=== PATIENT | female | born 1960 | race Caucasian/White ===

== ENCOUNTER 2018-01-24 06:29 | Observation (INO) | payer OTHER ==
[~2018-01-24] VITALS: Ht 172.7 cm; Wt 106.1 kg
--- NOTE | ~2018-01-24 | CON ---
[address] [address] CONSULTATION Name: MARIEL TIDWELL Room: [address] Roldan Bullard#: [id number] Admission: 01/24/18 Attend Phys: Abhijit Martins MD Discharge: Date of : 58 Report #: [id number] THIS REPORT FOR: //name// CC: Abhijit Martins [facility] physician/PCP DATE OF SERVICE: 01/24/2018 HISTORY OF PRESENT ILLNESS: This is a 57-year-old female patient who was evaluated by me for the right leg weakness. She indicated that symptoms started last night. She noticed the symptoms around 11:00 p.m. last night when she woke up. She did not seek any medical attention and then went back to sleep, hoping the symptoms would be better in the morning. When the patient was not any better, then she came to Emergency Room. She had some weakness of the right upper extremity also, but that is better. Right leg is not better. Review of system indicate she does have some back problem. She mostly goes to a chiropractor for that. She does have a history of hypertension. She needs to monitor it, not take the medication. She used to take medication, but about 2 years ago, she stopped taking the medication. Blood pressure on admission was 194/92. Record indicate that she also has severe hyperlipidemia. Her LDL was 143, how long it is going on is not clear. She indicates otherwise she is healthy and works. PAST MEDICAL HISTORY: Negative for any stroke. FAMILY HISTORY: Negative for any early age stroke. REVIEW OF SYSTEMS: Rest of the 14-point review of system was noncontributory. SOCIAL HISTORY: She indicates she does not smoke and drink alcohol rarely. PHYSICAL EXAMINATION: Indicate she is alert, responsive, able to follow simple commands. Her speech, concentration, fund of knowledge and memory is at her baseline. Cranial nerve examination 2-12 looks unremarkable. Strength in the right upper extremity does not look too bad, but in the right lower extremity, she is pretty significantly weak, position sense is intact there. There is no cerebellar sign. I could not look at the patient's fundus. She is moderately built individual. She does not have any dysmorphic features of eyes, ears and face. Cardiac examination is unremarkable. No respiratory difficulty was noted. Pulses are difficult to feel. She did have a CT scan of the head, which did not show any acute abnormality. MRI is pending. IMPRESSION: The first diagnosis we need to consider in this patient is infarct in the left anterior cerebral artery distribution. If that [place], [place] [address] CONSULTATION Name: MARIEL TIDWELL JUNE Room: [address] M.R.#: [id number] Admission: 01/24/18 Attend Phys: Abhijit Martins MD Discharge: Date of : 58 Report #: [id number] we will start the secondary prophylaxis. If we cannot document that, then we need to workup the spine and look for other causes. RECOMMENDATIONS: I discussed all of it with the patient. I discussed with her our plan. She is going to need high dose statin. We will follow this patient with you. The patient was discussed with Dr. Martins who is admitting physician as well as Dr. Arriaga, who is an Emergency Room physician. More than 50 minutes of time was spent taking care of this patient and majority of that time was spent counseling the patient, coordinating her care by talking to other health direct care counselor and reviewing the patient's data. By: [id number] [id number] Ewing MD /nt
[~2018-01-24 06:29] MED LIST: DARVOCET-N 1001 EAC1 PO
[2018-01-24 06:33] VITALS: BP 194/92
[2018-01-24 06:55] LABS: ABSOLUTE EOSINOPHILS 0.1 thou/uL (0.0-0.7); ABSOLUTE LYMPHOCYTES 1.5 thou/uL (0.8-5.3); ABSOLUTE MONOCYTES 0.6 thou/uL (0.0-1.2); ABSOLUTE NEUTROPHILS 4.3 thou/uL (1.6-8.1); BASOPHILS 0.4 %; EOSINOPHILS 1.6 %; HEMATOCRIT 43.6 % (37.0-47.0); HEMOGLOBIN 14.9 gm/dL (12.0-15.0); LYMPHOCYTES 23.4 %; MCH 29.5 pg (26.0-34.0); MCHC 34.3 g/dL (28.0-37.0); MCV 86.1 fL (80.0-100.0); MONOCYTES 9.2 %; MPV 7.8 fl. (7.2-11.1); NUCLEATED RBCS 0 /100WBC; PLATELET COUNT* 225 thou/uL (150-400); POLYS 65.4 %; RBC 5.07 mil/uL (4.20-5.00); RDW-CV 12.5 % (10.5-14.5); WBC 6.6 thou/uL (4.0-11.0)
[2018-01-24 07:05] LABS: APTT 27.5 Seconds (25.0-31.3); PROTIME 10.1 Seconds (9.20-11.50)
[2018-01-24 08:23] LABS: URINE BILIRUBIN NEGATIVE (Negative); URINE BLOOD NEGATIVE (Negative); URINE CLARITY CLEAR; URINE COLOR YELLOW; URINE GLUCOSE-RANDOM NEGATIVE (Negative); URINE KETONES NEGATIVE (Negative); URINE LEUKOCYTES-REFLEX NEGATIVE (Negative); URINE NITRITE-REFLEX NEGATIVE (Negative); URINE PROTEIN NEGATIVE (Negative); URINE SPECIFIC GRAVITY >= 1.030 (1.005-1.030); URINE UROBILINOGEN 0.2 E.U./dl (0.2-1.0)
[2018-01-24 09:56] LABS: CHOLESTEROL 230 mg/dL (<200); HDL CHOLESTEROL 47 mg/dL (>40); LDL CHOLESTEROL 143 mg/dL (<100); TC:HDL 4.9 Ratio (Not establshd); TRIGLYCERIDE 204 mg/dL (<150); VLDL 41 mg/dL (<40)
[2018-01-24 09:57] LABS: SERUM ASSESSMENT Clear
[2018-01-24 10:20] VITALS: BP 180/99
[2018-01-24 10:45] VITALS: BP 180/88
[2018-01-24 11:06] LABS: ALBUMIN 3.6 g/dL (3.4-5.0); CALCIUM 9.2 mg/dL (8.5-10.1); CREATININE 0.7 mg/dL (0.6-1.3); POTASSIUM 3.9 mmol/L (3.5-5.1); TOTAL BILIRUBIN 1.2 mg/dL (<0.1-1.0); TOTAL PROTEIN 6.8 g/dL (6.4-8.2)
--- NOTE | 2018-01-24 15:27 | 2DMMODE ---
[place] [address] 2 D/M-MODE ECHOCARDIOGRAM Name: MARIEL TIDWELL Room: [address] Roldan Bullard#: [id number] Admission: 01/24/18 Attend Phys: Abhijit Martins, Discharge: Date of : 58 Date of Service: 01/24/18 1526 Report #: [id number] THIS REPORT FOR: //name// APPROVED REPORT Study performed: 01/24/2018 14:22:51 EXAM: Comprehensive 2D, Doppler, and color-flow Echocardiogram Patient Location: In-Patient Room #: [facility] Status: routine BSA: 2.28 HR: 67 bpm BP: 180/99 mmHg Rhythm: NSR Other Information Study Quality: Good Indications CVA/TIA Echo Enhancing Agent Indication: Rule out Shunt Agent(s) / Amount(s) Used: Agitated Saline 10 cc 2D Dimensions IVSd: 11.37 (7-11mm) LVOT Diam: 20.64 (18-24mm) LVDd: 54.57 mm PWd: 10.98 (7-11mm) Ascending Ao: 32.74 (22-36mm) LVDs: 32.11 (25-40mm) Aortic Root: 31.16 mm Volumes Left Atrial Volume (Systole) LA ESV Index: 26.70 mL/m2 Aortic Valve AoV Peak Vishnu.: 1.49 m/s AO Peak Gr.: 8.89 mmHg LVOT Max P.78 mmHg AO Mean Gr.: 4.56 mmHg LVOT Mean P.97 mmHg LVOT Max V: 1.09 m/s AO V2 VTI: 30.97 cm LVOT Mean V: 0.63 m/s BRAD (VTI): 2.36 cm2 LVOT V1 VTI: 21.88 [place] [address] 2 D/M-MODE ECHOCARDIOGRAM Name: TIDWELLMARIEL Room: [address] M.R.#: [id number] Admission: 01/24/18 Attend Phys: Abhijit Martins, Discharge: Date of : 58 Date of Service: 01/24/18 1526 Report #: [id number] Mitral Valve E/A Ratio: 1.28 MV Decel. Time: 269.35 ms MV E Max Vishnu.: 0.70 m/s MV PHT: 78.11 ms MVA (PHT): 2.82 cm2 TDI E/Lateral E': 5.83 E/Medial E': 5.83 Medial E' Vishnu.: 0.12 m/s Lateral E' Vishnu.: 0.12 m/s Pulmonary Valve PV Peak Vishnu.: 1.00 m/s PV Peak Gr.: 3.99 mmHg Left Ventricle The left ventricle is normal size. There is normal LV segmental wall motion. There is normal left ventricular wall thickness. Left ventricular systolic function is normal. The left ventricular ejection fraction is within the normal range. LVEF is 55-60%. The left ventricular diastolic function is normal. Right Ventricle The right ventricle is normal size. The right ventricular systolic function is normal. Atria The left atrium size is normal. Interatrial septum is intact without evidence of ASD or PFO. The right atrium size is normal. Aortic Valve The aortic valve is normal in structure. No aortic regurgitation is present. There is no aortic valvular stenosis. Mitral Valve The mitral valve is normal in structure. Trace mitral regurgitation. No evidence of mitral valve stenosis. Tricuspid Valve The tricuspid valve is normal in structure. There is no tricuspid valve regurgitation noted. Pulmonic Valve The pulmonary valve is normal in structure. [place] [address] 2 D/M-MODE ECHOCARDIOGRAM Name: MARIEL TIDWELL JUNE Room: [address] Roldan MAuraRAura#: [id number] Admission: 01/24/18 Attend Phys: Abhijit Mratins, Discharge: Date of : 58 Date of Service: 01/24/18 1526 Report #: [id number] Great Vessels The aortic root is normal in size. IVC is normal in size and collapses >50% with inspiration. Pericardium There is no pericardial effusion. <Conclusion> The left ventricle is normal size. There is normal left ventricular wall thickness. Left ventricular systolic function is normal. The left ventricular ejection fraction is within the normal range. LVEF is 55-60%. The left ventricular diastolic function is normal. The right ventricle is normal size. The left atrium size is normal. The aortic valve is normal in structure. The mitral valve is normal in structure. The tricuspid valve is normal in structure. IVC is normal in size and collapses >50% with inspiration. There is no pericardial effusion. There is normal LV segmental wall motion. <ELECTRONICALLY SIGNED> By: Markos Bryan MD, FACC 01/24/18 1526 1526 1526 Markos Bryan MD, FACC /INF
[2018-01-24 16:11] VITALS: BP 190/88
--- NOTE | 2018-01-24 16:19 | EKG ---
[place] [address] ELECTROCARDIOGRAM REPORT Name: MARIEL TIDWELL Room: [address] M.R.#: [id number] Admission: 01/24/18 Attend Phys: Abhijit Martins MD Discharge: Date of : 58 Report #: [id number] THIS REPORT FOR: //name// [facility] ED Test Date: 2018-01-24 Test Time: 06:35:42 Pat Name: MARIEL TIDWELL Department: Room: [facility] Gender: F Chiropractic Doctor: DANIELLA : 1960 Requested By: Mookie Jara Order Number: [id number] MD: Markos Bryan Measurements Intervals [place] Rate: 66 P: 25 MA: 137 QRS: -19 QRSD: 101 T: 21 QT: 429 QTc: 450 Interpretive Statements Sinus rhythm Borderline left axis deviation Borderline T abnormalities, inferior leads No previous ECG available for comparison Electronically Signed On 01-24-2018 16:19:25 [facility] by Markos Bryan [email or web address] <ELECTRONICALLY SIGNED> By: Markos Bryan MD, [facility] 01/24/18 1619 Markos Bryan MD, FAC /EPI
[2018-01-24 19:15] VITALS: BP 153/66
[2018-01-24 21:06] LABS: GLYCOHEMOGLOBIN (HGB A1C) 5.6 % (4.8-5.6)
[2018-01-25] VITALS: BP 155/57
[2018-01-25 04:00] VITALS: BP 159/73
[2018-01-25 07:25] LABS: ANION GAP 10 mmol/L (7-16); BUN 20 mg/dL (7-18); CALCIUM 8.2 mg/dL (8.5-10.1); CHLORIDE 106 mmol/L (98-107); CO2 25 mmol/L (21-32); CREATININE 0.6 mg/dL (0.6-1.3); GLUCOSE 113 mg/dL (70-99); SODIUM 141 mmol/L (136-145)
[2018-01-25 07:29] LABS: ALKALINE PHOSPHATASE 79 U/L (46-116); CHOLESTEROL 170 mg/dL (<200); HDL CHOLESTEROL 36 mg/dL (>40); LDL CHOLESTEROL 99 mg/dL (<100); SERUM ASSESSMENT Clear; SGOT 18 U/L (15-37); SGPT 33 U/L (30-65); TC:HDL 4.7 Ratio (Not establshd); TOTAL PROTEIN 5.9 g/dL (6.4-8.2); TRIGLYCERIDE 177 mg/dL (<150); VLDL 35 mg/dL (<40)
[2018-01-25 07:30] VITALS: BP 154/93
[2018-01-25] MEDS ORDERED: ASPIR 8181 M1 PO (10:10)
[2018-01-25] MEDS ORDERED: ATORVASTATIN CA40 MG PO (10:11)
[2018-01-25] MEDS ORDERED: NORVASC10 MG PO (10:12)
[2018-01-25 10:15] VITALS: BP 154/93
[2018-01-25 19:08] LABS: GLYCOHEMOGLOBIN (HGB A1C) 5.6 % (4.8-5.6)
== END 2018-01-25 17:31 | disposition home or self-care (01) ==
LOC: M.ERS 06:29 → M.TBA-ER 09:10 → M.2W 09:10
PROVIDERS: Emergency Medicine; Personal Emergency Response Attendant; ADMIT Internal Medicine
DX: I63.522 Cerebral infarction due to unspecified occlusion or stenosis of left anterior cerebral artery (principal); I10 Essential (primary) hypertension; E78.5 Hyperlipidemia, unspecified; R42 Dizziness and giddiness; G43.919 Migraine, unspecified, intractable, without status migrainosus; Z87.828 Personal history of other (healed) physical injury and trauma; Z72.89 Other problems related to lifestyle; Z79.899 Other long term (current) drug therapy; Z79.82 Long term (current) use of aspirin; Z23 Encounter for immunization